=== PATIENT | female | born 1960 | race Two or more races ===

== ENCOUNTER 2016-10-20 17:34 | Emergency (ER) | payer MEDICAID ==
[~2016-10-20] VITALS: Ht 167.6 cm; Wt 81.6 kg
== END 2016-10-20 18:15 | disposition left against medical advice (07) ==
LOC: CED 17:34
DX: Z53.21 Procedure and treatment not carried out due to patient leaving prior to being seen by health care provider (principal)

== ENCOUNTER 2016-11-05 14:53 | Emergency (ER) | payer MEDICAID ==
[~2016-11-05] VITALS: Ht 162.6 cm; Wt 83.0 kg
== END 2016-11-05 16:56 | disposition home or self-care (01) ==
LOC: CED 14:53
DX: I10 Essential (primary) hypertension (principal); R51 Headache
CPT/HCPCS: 99283

== ENCOUNTER 2016-12-21 12:55 | Emergency (ER) | payer SELFPAY ==
--- NOTE | ~2016-12-21 | EKG ---
PATIENT: JAY BRANDON UNIT #: [id number] Ventricular Rate: 57 BPM Atrial Rate: 57 BPM P-R Interval: 166 ms QRS Duration: 92 ms Q-T Interval: 432 ms QTC Calculation(Bezet): 420 ms P [place]: 57 degrees Calculated R [place]: 4 degrees Calculated T [place]: 18 degrees Diagnosis Line: Sinus bradycardia Diagnosis Line: Minimal voltage criteria for LVH, may be normal Diagnosis Line: variant Diagnosis Line: Borderline ECG Diagnosis Line: Diagnosis Line: Confirmed by DHARA NUNEZ MD ([id number]) on Diagnosis Line: 12/22/2016 12:33:54 PM INTERPRETING MD: ENRIQUE MANRIQUEZ
--- NOTE | ~2016-12-21 | CR72 ---
[facility] A Service of [facility] & [facility] RADIOLOGY TEXT RESULTS PATIENT: JAY BRANDON LOCATION: [facility] : 64 UNIT #: [id number] AGE: [address]: Marcela Encarnacion MD SEX: F ORDER DR: [id number] [facility] [address] [place], [place] [address] [id number] E MR#: [id number] Acc #: [id number] NAME: JAY BRANDON : 1960 SEX: F STUDY DATE/TIME: 12/21/2016 15:01 UNIT: [facility] ROOM: STUDY DESCRIPTION: CR Chest Single View Portable Attending Physician: Marcela Encarnacion M.D. Ordering Physician: Marcela Encarnacion M.D. Primary Care Physician: Primary Care Physician No MEDICAL IMAGING REPORT This report is preliminary unless electronic signature is present EXAM Frontal chest 12/21/2016 INDICATIONS 56-year-old female with chest pain, shortness of air chest and rib pain symptoms began yesterday. Hypertension. TECHNIQUE Frontal chest no comparisons. FINDINGS Cardiac silhouette borderline in size. Vascularity unremarkable for lung volumes. There is bronchovascular crowding. No effusion dense consolidation or pneumothorax. IMPRESSION 1. Borderline cardiac size with low lung volumes. No dense consolidation pneumothorax or effusion Dictated by... Efren Franks M.D. THIS IS AN ELECTRONICALLY VERIFIED REPORT Efren Franks M.D. at 12/23/2016 3:26 PM Ho TD: 12/22/2016 10:02 JOB #: [id number] MEDICAL IMAGING REPORT Page 1 of 1 COPY
[2016-12-21 15:00] LABS: BASOPHIL% 0.4 % (0-2.5); EOSINOPHIL# 0.1 X10e3 (0-0.7); HEMATOCRIT 37.9 % (35.0-45.0); HEMOGLOBIN 12.8 gm/dL (12.0-16.0); LYMPHOCYTE# 1.6 X10e3 (1.0-3.5); LYMPHOCYTE% 23.8 % (17.0-45.0); MEAN CELL VOLUME 89.2 FL (83-96); MEAN CORPUSCULAR HEMOGLOBIN 30.3 PG (28-34); MEAN CORPUSCULAR HGB CONC 33.9 g/dL (30-36); MEAN PLATELET VOLUME 7.6 FL (6.5-11.5); MONOCYTE# 0.5 X10e3 (0-1.0); MONOCYTE% 7.5 % (3.0-12.0); NEUTROPHIL# 4.6 X10e3 (1.5-7.1); NEUTROPHIL% 67.3 % (40-75); PLATELET COUNT 270 X10e3 (140-420); RED BLOOD COUNT 4.25 X10e (3.90-5.30); RED CELL DISTRIBUTION WIDTH 14.3 % (11.0-15.5); WHITE BLOOD COUNT 6.9 X10e3 (4.0-10.5)
[2016-12-21 15:01] LABS: DIFF IND NO
[2016-12-21 15:21] LABS: ALBUMIN SERUM 4.1 g/dL (3.5-5.0); BILIRUBIN, DIRECT 0.1 mg/dL (0.0-0.2); BILIRUBIN,INDIRECT 0.4 mg/dL (0.0-0.9); BILIRUBIN,TOTAL 0.5 mg/dL (0.2-2.0); BUN/CREATININE RATIO 18.57; CREATININE SERUM 0.7 mg/dL (0.6-1.4); GLOM FILT RATE Estimated 98.2 mL/min (>60); POTASSIUM 3.8 mmol/L (3.5-5.1); PROTEIN TOTAL SERUM 8.1 g/dL (6.0-8.3)
[2016-12-21 15:51] LABS: POC - CKMB 1.5 ng/mL (0.0-7.9); POC - TROPONIN <0.05 ng/mL (<=0.05)
[2016-12-21 16:09] LABS: POC - CKMB 2.1 ng/mL (0.0-7.9); POC - TROPONIN <0.05 ng/mL (<=0.05)
== END 2016-12-21 17:34 | disposition home or self-care (01) ==
LOC: CED 12:55
PROVIDERS: Emergency Medicine
DX: R07.89 Other chest pain (principal); I10 Essential (primary) hypertension
CPT/HCPCS: 71010; 80048; 80076; 82553; 84484; 85025; 93005; 99285